=== PATIENT | male | born 1960 | race Caucasian/White ===

== ENCOUNTER → 2016-03-06 19:53 | Outpatient (CLI) | payer OTHER | END | disposition home or self-care (01) | LOC: D.SLEEP 19:53 | DX: G47.33 Obstructive sleep apnea (adult) (pediatric) (principal) ==

== ENCOUNTER 2017-03-11 10:48 | Outpatient (CLI) | payer OTHER ==
[~2017-03-11] VITALS: Ht 177.8 cm; Wt 112.7 kg
--- NOTE | ~2017-03-11 | OP ---
PATIENT NAME: PRESLEY JOHNSON MEDICAL RECORD: [id number] :62 LOCATION:D.CAT ADMISSION DATE: SURGEON: BETTYE TEJEDA MD DATE OF OPERATION: 03/11/2017 PROCEDURE: Left heart catheterization, selective coronary angiography, right femoral artery approach. CATHETERS: A 5-Latvian sheath, 5/4 left and right Noemi, 5/4 pig. The procedure was well tolerated. The patient returned to chavez, sheath removed. Adequate hemostasis was obtained. FINDINGS: Left ventriculography in 30-degree DONNELLY view: Normal wall motion, normal systolic function. CORONARY ANATOMY: LEFT MAIN: Left main is free of disease. LAD: Free of disease in the diagonal system. CIRCUMFLEX: Free of disease in the marginal system. RIGHT CORONARY ARTERY: Dominant artery, gives rise to PDA and this has about 80% stenosis at takeoff of the upper RV branch. IMPRESSION AND PLAN: Intervention of this vessel momentarily. DESCRIPTION OF PROCEDURE: A 5-Latvian sheath was changed for a 6-Latvian sheath. Hockey stick guide catheter provided excellent guide catheter support followed by 300 cm Whisper wire, was placed across totally occluded right down the distal portion of vessel. Stent deployed was a 3.5 x 15 mm Cumming drug-eluting stent up to 14 atmospheres for 45 seconds. Final injection shows excellent resolution of 80% stenosis, no significant residual. VINOD flow was 3 throughout the procedure. Integrilin was used in the case. Sheath closed with ExoSeal device. Plavix was loaded in the lab. TRANSINT:[id number] Voice Confirmation ID: [id number] DOCUMENT ID: [id number] BETTYE TEJEDA MD at 0950 CC: [id number] DICTATION DATE: 03/11/17 1337 COMMERCIAL FINANCE ANALYST: 03/11/17 1507 DEP CLI 03/11/17 [place] [id number] [place] [id number]
--- NOTE | ~2017-03-11 | HEMODYNAMI ---
PATIENT:PRESLEY JOHNSON MEDICAL RECORD: [id number] : 62 LOCATION:D.CAT ADMISSION DATE: 03/11/17 Generatedon:03/11/201713:43 Patient name: PRESLEY JOHNSON Patient #: [id number] SSN: : Date of study: 03/11/2017 Page: Of Hemodynamic Procedure Report Patient Data Patient Demographics Procedure consent was obtained First Name: PRESLEY Gender: Male Last Name: ALEX : 1960 Middle Initial: M Age: 56 year(s) Patient #: [id number] Race: Unknown Additional ID: [id number] Contact details Address: [address] [place] [address] [place] [facility] [place] Zip code: [address] Past Medical History Allergies: No known allergies Admission Admission Data Admission Date: 03/11/2017 Admission Time: 10:48 Admit Source: Other Lab Results Lab Result Date: 03/11/2017 Lab Result Time: 11:08 Biochemistry Name Units Result Min Max BUN mg/dl 11 --(-*--)-- 7 18 Creatinine mg/dl 1 --(--*-)-- 0.6 1.3 CBC Name Units Result Min Max Hematocrit % 36.5 *-(----)-- 42 54 Hemoglobin g/dl 12.5 *-(----)-- 13.5 17.5 Procedure Procedure Types Cath Procedure Diagnostic Procedure [facility] w/Coronaries PCI Procedure Coronary Stent Coronary Stent Initial Miscellaneous Procedures Moderate Sedation up to 30 minutes Procedure Description Procedure Date Procedure Date: 03/11/2017 Procedure Start Time: 13:16 Procedure End Time: 13:34 Procedure Staff Name Function Rafiq Yen MD Performing Physician Rudy Nayak RT Monitor Luz Marina Kirkland RT Scrub Jose Lai RN Nurse Procedure Data Cath Procedure Fluoroscopy Diagnostic fluoroscopy Total fluoroscopy Time: 3.2 time: 3.2 min min Diagnostic fluoroscopy Total fluoroscopy dose: 686 dose: 686 mGy mGy Contrast Material Contrast Material Type Amount (ml) Isovue 300 100 Entry Location Entry Primary Successful Side Size Upsize Upsize Entry Closure Succes sful Closure Location (Fr) 1 (Fr) 2 (Fr) Remarks Device Remarks Femoral Right 5 Fr 6 Fr Exoseal artery Short Estimated blood loss: 10 ml Diagnostic catheters Device Type Used For End Catheter Placement MULTIPACK JL 4.0 5Fr Procedure catheter MULTIPACK 3DRC 5Fr Procedure catheter MULTIPACK Pigtail 5 Fr Procedure catheter Procedure Complications No complications Procedure Medications Medication Administration Route Dosage 0.9% NaCl I.V. 100 ml/hr Oxygen NC 2 l/min Heparin Flush Bag added to field 2 bags (1000units/500ml NS) Lidocaine 2% added to field 20 Versed I.V. 2 mg Fentanyl I.V. 100 mcg Versed I.V. 1 mg Heparin Bolus I.V. 5000 units Integrilin (Bolus I.V. 10.2 ml 2mg/ml) Integrilin (Bolus wasted 9.8 ml 2mg/ml) Plavix P.O. 600 mg Versed I.V. 1 mg Benadryl I.V. 50 mg Hemodynamics Rest HGB: 12.5 (g/dl) Heart Rate: 67 (bpm) Pressure Samples Time Site Value (mmHg) Purpose Heart Use Rate(bpm) 13:21 LV 124/-1,21 Snapshot 74 13:21 AO 107/69(88) Pullback 75 13:21 LV 121/17,22 Pullback 75 Gradients Valve Time Site 1 Site 2 Mean SEP/DFP Peak To Heart Use (mmHg) (sec/min) Peak Rate (mmHg) (bpm) Aortic 13:21 LV AO 13 21 14 75 121/17,22 107/69(88) Calculations Valve P-P Mean Valve Index Valve Source Name Gradient Area Flow (cm2) Aortic 14 13 14 13 Snapshots Pre Cath Intra NCS Post Cath Vital Signs Time Heart Resp SPO2 etCO2 NIBP (mmHg) Rhythm Pain Sedation Rate (ipm) (%) (mmHg) Status Level (bpm) 12:55:05 72 18 97 120/64(98) NSR 0 (11) 10(A) , No pain 12:59:50 64 24 99 34.2 113/73(90) NSR 0 (11) 10(A) , No pain 13:04:34 68 19 96 38 120/67(86) NSR 0 (11) 10(A) , No pain 13:09:21 69 17 98 34.9 129/69(101) NSR 0 (11) 10(A) , No pain 13:14:10 65 13 97 29.6 113/71(84) NSR 0 (11) 10(A) , No pain 13:18:53 76 19 98 34.1 117/79(95) NSR 0 (11) 9(A) , No pain 13:23:40 81 18 98 34.9 114/67(96) NSR 0 (11) 9(A) , No pain 13:28:24 74 16 99 34.1 125/76(103) NSR 0 (11) 9(A) , No pain 13:33:11 73 18 99 28.8 127/79(96) NSR 0 (11) 10(A) , No pain Medications Time Medication Route Dose Verified Delivered Reason Notes Effectiveness by by 13:00:21 Benadryl I.V. 50 mg Jose Jose Per physician Ming Lai RN RN 13:02:23 0.9% NaCl I.V. 100 Jose Jose Per physician ml/hr Ming Lai RN RN 13:02:34 Oxygen NC 2 Jose Jose Per physician l/min Ming Lai RN RN 13:02:47 Heparin Flush added 2 Jose Jose used for Bag to bags Ming Lai procedure (1000units/500ml field CARRASCO RN NS) 13:03:05 Lidocaine 2% added 20ml Jose Jose for local to vial Ming Lai anesthetic field CARRASCO RN 13:08:11 Versed I.V. 2 mg Jose Jose for sedation Ming Lai RN RN 13:08:19 Fentanyl I.V. 100 Jose Jose for sedation mcg Ming Lai RN RN 13:16:25 Versed I.V. 1 mg Jose Jose for sedation Ming Lai RN RN 13:26:26 Heparin Bolus I.V. 5000 Jose Jose for units Ming Lai anticoagulation RN RN 13:26:49 Integrilin I.V. 10.2 Jose Jose for (Bolus 2mg/ml) ml Ming Lai antiplatelet RN RN therapy 13:27:05 Integrilin wasted 9.8 Jose Jose to sharp's (Bolus 2mg/ml) ml Ming Lai RN RN 13:27:43 Versed I.V. 1 mg Jose Garcia for sedation Ming Lai RN RN 13:31:18 Plavix P.O. 600 Jose Garcia for mg Ming Lai antiplatelet RN RN therapy Procedure Log Time Note 12:30:24 Jose Lai RN sent for patient. Start room use. 12:49:21 Admit Source: Other 12:49:22 Diagnostic Cath status Elective 12:49:32 Time tracking: Regular hours 12:49:35 Plan of Care:Hemodynamics will remain stable., Cardiac rhythm will remain stable., Comfort level will be maintained., Respiratory function will remain adequate., Patient/ family verbilizes understanding of procedure., Procedure tolerated without complication., Recovers from procedure without complications.. 12:49:39 Patient received from Pre/Post Procedure Room to CCL 1 Alert and oriented. Tansferred to table in Supine position. 12:49:40 Warm blankets applied, and lanette hugger turned on for patient comfort. 12:49:40 Correct patient and procedure confirmed by team. 12:49:41 Signed procedure consent form obtained from patient. 12:49:42 ECG and BP/O2 sat monitors applied to patient. 12:49:52 H&P Date Dictated: 02/27/2017 Within 30 days and on chart., H&P Addendum completed by physician on day of procedure. (MUST COMPLETE FOR ALL OUTPATIENTS). 12:49:54 Pre-procedure instructions explained to patient. 12:49:54 Pre-op teaching completed and patient verbalized understanding. 12:49:56 Family in waiting room. 12:50:01 Patient NPO since Midnight. 12:54:04 Vital chart was started 13:00:21 Benadryl 50 mg I.V. was administered by Jose Lai RN; Per physician; 13:02:23 0.9% NaCl 100 ml/hr I.V. was administered by Jose Lai RN; Per physician; 13:02:34 Oxygen 2 l/min NC was administered by Jose Lai RN; Per physician; 13:02:47 Heparin Flush Bag (1000units/500ml NS) 2 bags added to field was administered by Jose Lai RN; used for procedure; 13:03:05 Lidocaine 2% 20ml vial added to field was administered by Jose Lai RN; for local anesthetic; 13:04:34 Baseline sample Acquired. 13:04:46 Rhythm: sinus rhythm 13:04:49 Full Disclosure recording started 13:04:57 Patient allergic to No known allergies 13:04:59 Is the patient allergic to Iodine/contrast media? No. 13:05:00 Is patient on blood thinner?No 13:05:01 Patient diabetic? No. 13:05:06 Previous problem with sedation/anesthesia? No ? 13:05:07 Snore? Yes 13:05:08 Sleep apnea? No 13:05:09 Deviated septum? No 13:05:10 Opens mouth fully? Yes 13:05:11 Sticks out tongue? Yes 13:05:13 Airway obstruction? No ? 13:05:14 Dentures? No ? 13:05:17 Pre procedure: right dorsailis pedis pulse 2+ Normal; easily identifiable; not easily obliterated 13:05:18 Patient pain scale 0/10 ?. 13:05:36 IV patent on arrival in left hand with 0.9% NaCl at [facility]. 13:07:01 Lab Result : BUN 11 mg/dl 13:07:01 Lab Result : Hemoglobin 12.5 g/dl 13:07:01 Lab Result : Creatinine 1 mg/dl 13:07:01 Lab Result : Hematocrit 36.5 % 13:07:04 Lab results completed and on chart. 13:07:06 Right groin area was prepped with chlora-prep and draped in sterile fashion 13:07:07 Alarms reviewed by Alex Mary 13:07:09 Use device set Femoral Dx 13:07:11 Tegaderm 4 x 4 (1626W) opened to sterile field. 13:07:13 ACIST Manifold (87172) opened to sterile field. 13:07:14 ACIST Hand Control (06510) opened to sterile field. 13:07:16 Medline Cath Pack ([id number]) opened to sterile field. 13:07:16 Bag Decanter (2002) opened to sterile field. 13:07:17 ACIST Syringe (88352) opened to sterile field. 13:07:18 SHEATH 5FR Ogden (VCC341) opened to sterile field. 13:07:19 DIAGNOSTIC WIRE .035 260cm J wire (290719) opened to sterile field. 13:07:21 PERCUTANEOUS ENTRY 19GA needle opened to sterile field. 13:07:22 DIAGNOSTIC Multipack 5Fr catheter set (DX0666) opened to sterile field. 13:07:30 Physician arrived 13:07:30 --------ALL STOP TIME OUT------ 13:07:31 Final Timeout: patient, procedure, and site verified with staff and physician. All members of the team are in agreement. 13::33 Right groin site verified by team. 13:07:36 Physical assessment completed. ASA score P 2 - A patient with mild systemic disease as per Rafiq Yen MD. 13:07:39 Sedation plan: IV Moderate Sedation Medication:Versed, Fentanyl 13:08:11 Versed 2 mg I.V. was administered by Jose Lai RN; for sedation; 13:08:17 Zero performed for pressure channel P1 13:08:19 Fentanyl 100 mcg I.V. was administered by Jose Lai RN; for sedation; 13:08:47 Zero performed for pressure channel P1 13:08:53 Zero performed for pressure channel P1 13:08:57 Zero performed for pressure channel P1 13:15:58 Procedure started. 13:16:00 Local anesthetic to right femoral artery with Lidocaine 2% by Rafiq Yen MD.INITIAL ACCESS ONLY 13:16:25 Versed 1 mg I.V. was administered by Jose Lai RN; for sedation; 13:17:00 A 5 Fr sheath was inserted into the Right Femoral artery 13:17:05 A MULTIPACK JL 4.0 5Fr catheter was advanced over the wire and used for Procedure. 13:17:51 LCA angiography performed. 13:18:28 Catheter exchanged over wire. 13:18:33 A MULTIPACK 3DRC 5Fr catheter was advanced over the wire and used for Procedure. 13:18:40 EXOSEAL 5Fr (EX500) opened to sterile field. 13:19:33 RCA angiography performed. 13:20:39 Catheter exchanged over wire. 13:20:42 A MULTIPACK Pigtail 5 Fr catheter was advanced over the wire and used for Procedure. 13:21:14 LV hemodynamics recorded. 13:21:36 LV gram done using DONNELLY ::39 Injector settings: Ml/sec: 10, Volume: 20, 13:21:56 EF : 55 % 13:22:22 INFLATOR Merit BasixCompak (IZ2008) opened to sterile field. 13:22:23 SHEATH 6FR Ogden (KPK053) opened to sterile field. 13:22:38 Catheter removed. 13:22:43 Sheath upsized to a 6 Fr Short. 13:24:16 GUIDE 6FR HS I catheter (LA6HSI) opened to sterile field. 13:24:24 WHISPER 300cm guide wire ([id number]) opened to sterile field. 13:24:33 6 Fr HSI guide catheter was inserted over the wire 13:25:36 whisper wire advanced. 13:26:26 Heparin Bolus 5000 units I.V. was administered by Jose Lai RN; for anticoagulation; 13:26:49 Integrilin (Bolus 2mg/ml) 10.2 ml I.V. was administered by Jose Lai RN; for antiplatelet therapy; 13:27:05 Integrilin (Bolus 2mg/ml) 9.8 ml wasted was administered by Jose Lai RN; to sharp's; 13::43 Versed 1 mg I.V. was administered by Jose Lai RN; for sedation; 13:27:52 Wire advanced across lesion. 13:27:54 Inflation Number: 1 A RIP OTW 3.5 x 15 stent ([id number]) was prepped and advanced across the Mid RCA. The stent was deployed at 0 ODESSA for 0:10 (min:sec). 13:29:14 Stent catheter was removed intact over wire. 13:29:15 Wire removed. 13:29:15 Guide catheter removed. 13:29:22 EXOSEAL 6Fr (EX600) opened to sterile field. 13:29:29 Sheath removed intact; hemostasis achieved with Exoseal to the Right Femoral artery. 13:29:30 Procedure ended.(Physican Out) 13:30:25 Fluoroscopy time 03.20 minutes. 13:30:31 Flurop Dose total: 686 13:30:31 Fluoroscopy dose: 686 mGy 13:31:05 Contrast amount:Isovue 300 100ml. 13:31:07 Sharps counted by scrub and verified by R.N. 13:31:13 Insertion/operative site no bleeding no hematoma. 13:31:15 Post-op/insertion site Right Femoral artery dressed using a 4 x 4 and Tegaderm. 13:31:18 Plavix 600 mg P.O. was administered by Jose Lai RN; for antiplatelet therapy; 13:31:18 Post right femoral artery:stable, soft, clean and dry 13:31:20 Post Procedure Pulses reassessed and unchanged 13:31:24 Post-procedure physical assessment completed. ASA score P 2 - A patient with mild systemic disease as per Rafiq Yen MD. 13:31:40 Post procedure rhythm: unchanged. 13:31:43 Estimated blood loss: 10 ml 13:31:45 Post procedure instruction explained to patient.Patient verbalizes understanding. 13:31:45 Patient needs reinforcement of post procedure teaching. 13:32:04 Procedure type changed to Cath procedure, Diagnostic procedure, LHC, LHC w/Coronaries, PCI procedure, Coronary Stent, Coronary Stent Initial, Miscellaneous Procedures, Moderate Sedation up to 30 minutes 13:34:08 Procedure and supply charges have been captured, reviewed, submitted and are correct. 13:34:10 Procedure Complication : No complications 13:34:12 Vital chart was stopped 13:34:12 See physician's report for complete and final results. 13:34:14 Report given to Pre/Post Procedure Room. 13:34:16 Patient transfered to Pre/Post Procedure Room with Stretcher. 13:34:19 Procedure ended. 13:34:19 Full Disclosure recording stopped 13:34:38 End room use (Document Last) 13:35:50 FEMSTOP Gold ([id number]) opened to sterile field. 13:41:30 Femstop placed over the right femoral artery at 157 mmHg. Hemostasis achieved. Intervention Summary Intervention Notes Time ActionType Lesion and Equipment Action# Pressure Duration Attributes Used 13:27:54 Place stent Mid RCA RIP OTW 3.5 1 0 00:10 x 15 stent ([id number]) Device Usage Item Name Manufacture Quantity Catalog Hospital Part Current Mini mal Lot# / Number Charge Number Stock Stock Serial# Code Tegaderm 4 x 3M 1 1626W [id number] 945212 969630 5 4 (1626W) ACIST Acist 1 80478 316091 301305 567993 5 Manifold Medical (62251) Systems Inc ACIST Hand Acist 1 33875 249755 264051 220789 5 Control Medical (46883) Systems Inc Medline Cath Cardinal 1 [id number] 197050 01929 717998 5 Pack Health ([id number]) Bag Decanter Microtek 1 2001S 981025 22691 541777 5 () Medical Inc. ACIST Syringe Acist 1 64744 791804 005040 521549 20 (57725) Medical Systems Inc SHEATH 5FR Terumo 1 NAT187 194007 551019 542872 40 Ogden (YDN232) DIAGNOSTIC [facility] [place] 1 797396 717241 256668 399263 30 WIRE .035 260cm J wire (590081) PERCUTANEOUS Cook Medical 1 H11322 728280 989203 5 ENTRY 19GA needle DIAGNOSTIC Cardinal 1 BB3204 101197 77806 113771 30 Multipack 5Fr Health catheter set (OC6685) MULTIPACK JL Cardinal 1 712290 5 4.0 5Fr Health catheter MULTIPACK Cardinal 1 184954 5 3DRC 5Fr Health catheter EXOSEAL 5Fr Cardinal 1 EX500 558999 604603 516037 10 (EX500) Health MULTIPACK Cardinal 1 186886 5 Pigtail 5 Fr Health catheter INFLATOR [facility] 1 QH8033 403060 255419 650324 15 [facility] Medical BasixCompak (CC5668) SHEATH 6FR Terumo 1 MGJ741 154238 439698 209208 40 Ogden (FKQ920) GUIDE 6FR HS Medtronic 1 LA6HSI 909473 86172 855450 1 I catheter (LA6HSI) WHISPER 300cm Rodriguez 1 [id number] 886446 687524 705215 5 guide wire Vascular ([id number]) RIP OTW 3.5 Medtronic 1 [id number] 451959 6267424 016998 5 [id number] x 15 stent ([id number]) EXOSEAL 6Fr Cardinal 1 EX600 198437 151125 503835 10 (EX600) Health FEMSTOP Gold [facility] 1 Z88754 297735 848503 710745 5 ([id number]) Signature Audit [place] Stage Time Signature Unsigned Intra-Procedure 03/11/2017 Rudy Nayak 1:43:25 PM RT(R) Signatures Monitor : Rudy Nayak RT Signature : Date : Time : [address] [place] [address]
[2017-03-11] MEDS ORDERED: BAYER CHEWABLE81 MG PO (10:58)
[2017-03-11 11:11] VITALS: BP 128/71; Ht 177.8 cm; Wt 112.7 kg
[2017-03-11 11:23] LABS: BASOPHILS 0.2 % (0-2); EOSINOPHILS 3.9 % (0-7); HEMATOCRIT 36.5 % (42.0-54.0); HEMOGLOBIN 12.5 g/dL (13.5-17.5); IMMATURE GRANULOCYTES 0.9 % (0-5); LYMPHOCYTES 31.4 % (15-50); MCH 31.6 pg (26.0-34.0); MCHC 34.2 g/dL (31.0-37.0); MCV 92.4 fL (80.0-100.0); MEAN PLATELET VOLUME 10.3 fL (7.4-10.4); MONOCYTES 8.8 % (2-11); NEUTROPHILS 54.8 % (40-80); PLATELET COUNT 240 10x3/uL (130-400); RBC 3.95 10x6/uL (4.20-6.10); RDW 12.1 % (11.5-14.5); WBC 9.9 10x3/uL (4.8-10.8)
[2017-03-11 11:41] LABS: CALC OSMOLALITY 280 mosm/kg (275-300); CALCIUM 8.5 mg/dL (8.5-10.1); CARBON DIOXIDE 23.2 mmol/L (21.0-32.0); CHLORIDE - SERUM 106 mmol/L (98-107); GLUCOSE 123 mg/dL (74-106); POTASSIUM - SERUM 3.8 mmol/L (3.5-5.1); SODIUM 141 mmol/L (136-145); UREA NITROGEN 11 mg/dL (7-18); eGFR NON AFRICAN AMERICAN 82 mL/min (90-120)
[2017-03-11] MEDS ORDERED: PLAVIX75 MG PO (13:42)
[2017-03-11] MEDS ORDERED: LIPITOR40 MG PO (13:57)
== END 2017-03-11 17:45 | disposition home or self-care (01) ==
LOC: D.CATH 10:48
PROVIDERS: Internal Medicine Interventional Cardiology
DX: I25.119 Atherosclerotic heart disease of native coronary artery with unspecified angina pectoris (principal); Z01.812 Encounter for preprocedural laboratory examination
CPT/HCPCS: 93458; C9600

== ENCOUNTER → 2018-09-24 09:19 | Outpatient (CLI) | payer BC ==
[2017-03-11 11:11] VITALS: BMI 35.6
[~2018-09-24 09:19] MED LIST: BAYER CHEWABLE81 MG PO; LIPITOR40 MG PO; PLAVIX75 MG PO
== END | disposition home or self-care (01) ==
LOC: D.RAD 09:19
PROVIDERS: ATTEND Family Medicine
DX: R13.10 Dysphagia, unspecified (principal)

== ENCOUNTER → 2018-12-25 12:14 | Outpatient (CLI) | payer BC ==
[2017-03-11 11:11] VITALS: BMI 35.6
== END | disposition home or self-care (01) ==
LOC: D.CT 12:14
PROVIDERS: ATTEND Family Medicine
DX: J32.9 Chronic sinusitis, unspecified (principal)

== ENCOUNTER 2019-02-09 05:32 | Day surgery (SDC) | payer BC ==
[~2019-02-09] VITALS: Ht 177.8 cm; Wt 120.9 kg
[2019-02-09 06:12] LABS: HEMATOCRIT 39.1 % (42.0-54.0); HEMOGLOBIN 13.2 g/dL (13.5-17.5); MCH 31.8 pg (26.0-34.0); MCHC 33.8 g/dL (31.0-37.0); MCV 94.2 fL (80.0-100.0); MEAN PLATELET VOLUME 9.7 fL (7.4-10.4); RBC 4.15 10x6/uL (4.20-6.10); RDW 12.5 % (11.5-14.5); WBC 10.4 10x3/uL (4.8-10.8)
[2019-02-09] MEDS ORDERED: ISOSORBIDE DINI30 MG PO (06:17)
[2019-02-09] MEDS ORDERED: NORVASC10 MG PO (06:18)
[2019-02-09] MEDS ORDERED: CELEXA10 MG PO (06:18)
[2019-02-09] MEDS ORDERED: PROTONIX40 MG PO (06:19)
[2019-02-09 06:24] VITALS: Ht 177.8 cm; Wt 120.9 kg
--- NOTE | 2019-02-09 09:24 | NUR ---
0913 IV DC'D. CATHETER TIP INTACT. NO BLEEDING AT SITE. BANDAID APPLIED.
--- NOTE | 2019-02-09 17:14 | OP ---
PATIENT NAME: PRESLEY JOHNSON MEDICAL RECORD: [id number] :62 LOCATION:[facility] ADMISSION DATE: SURGEON: PREETHI CONNELLY DO DATE OF OPERATION: 02/09/2019 PROCEDURE: EGD with balloon dilation and biopsies. INDICATIONS FOR PROCEDURE: Dysphagia and heartburn. SCOPE: Olympus video gastroscope. MEDICATIONS: Propofol 200 mg IV per anesthesia. ESTIMATED BLOOD LOSS: Minimal. COMPLICATIONS: None. FINDINGS: Informed consent was given. The patient was made comfortable with the above medication. After reaching an adequate level of sedation by slow IV push, the patient was placed on his left side. The endoscope was advanced under direct visualization through the mouth to the second portion and third portion of the duodenum. The esophagus appeared normal down to the GE junction. Random cold forceps biopsies were taken from the midesophagus to rule out the presence of eosinophils. At the GE junction, there was a mild Schatzki ring, which was nonobstructing just proximal to a small hiatal hernia. The ring was dilated successfully up to 20 mm maximum diameter using a CRE dilating balloon. At the GE junction, there was evidence of LA class A reflux-induced esophagitis. Cold forcep biopsies were taken from the squamocolumnar junction to rule out the presence of Cline's mucosa. The endoscope was advanced beyond the GE junction into the stomach and retroflexed to view the cardia, where a small sliding hiatal hernia was apparent. The fundus and body of the stomach appeared normal. In the antrum and prepyloric regions, there were some mild erythema and granularity consistent with mild gastritis. Cold forcep biopsies were taken to submit for histopathology and to rule out the presence of H. pylori. The endoscope was advanced beyond the pylorus into the duodenum, which appeared normal down to the third portion. The endoscope was then withdrawn from the patient. The patient tolerated the procedure well and there were no complications. IMPRESSION: 1. Nonobstructing Schatzki ring, located at the GE junction, which was dilated to 20 mm successfully today. 2. LA class A reflux-induced esophagitis. 3. Small sliding hiatal hernia. 4. Mild gastritis in the antrum and prepyloric region. PLAN AND RECOMMENDATIONS: 1. Discharge home when recovery parameters are met. 2. Follow up biopsy specimen results. 3. GERD diet and reflux precautions. 4. Continue current medications. 5. Modified barium swallow with speech therapy regarding the patient's oropharyngeal dysphagia. 6. Follow up in GI clinic in 4-6 weeks. OPERATIVE REPORT [id number] PRESLEY JOHNSON TRANSINT:[id number] Voice Confirmation ID: [id number] DOCUMENT ID: [id number] PREETHI CONNELLY DO at 1714 CC: [id number] DICTATION DATE: 02/09/19830 PUBLIC WEIGHER: 02/09/19 1047 [facility] 02/09/19 [place] [id number] [place] [address]
== END 2019-02-09 09:20 | disposition home or self-care (01) ==
LOC: D.OPS 05:32
PROVIDERS: Anesthesiology; ATTEND Internal Medicine Gastroenterology
DX: R13.10 Dysphagia, unspecified (principal); R12 Heartburn; K57.90 Diverticulosis of intestine, part unspecified, without perforation or abscess without bleeding